=== PATIENT | female | born 1970 | race Caucasian/White ===

== ENCOUNTER → 2017-02-14 | Outpatient (CLI) | payer BC ==
[~2017-02-14] MED LIST: ALLEGRA ALLERG180 MG PO; CYMBALTA 60MG60 MG PO; ESTRACE 1MG1 MG/TAB PO; FLONASEALLERGY NS; FLOVENT 110MCG7.9 GM IH; HYOPHEN1 TAB PO; KLONOPIN2 MG PO; LAMICTAL 100MG100 MG PO; LIORESAL20 MG PO; NEURONTIN300 MG/CAP PO; NORCO 325 MG-51 TAB PO; NORCO 325 MG-7.1 TAB PO; PROAIR HFA0.09 MG/AC IH; PROTONIX 40MG T40 MG PO; ZANAFLEX2 MG PO; [UNRECOGNIZED DRUG - OTHER]
== END ==
LOC: BHSO 15:29
DX: F41.1 Generalized anxiety disorder (principal)

== ENCOUNTER → 2017-03-12 | Outpatient (CLI) | payer BC | LOC: MC.RAD 07:38 | DX: Z12.31 Encounter for screening mammogram for malignant neoplasm of breast (principal) ==

== ENCOUNTER → 2017-09-27 | Outpatient (CLI) | payer BC | LOC: BHSO 16:21 | DX: F41.1 Generalized anxiety disorder (principal) ==

== ENCOUNTER → 2018-03-11 | Outpatient (CLI) | payer BC | LOC: BHSO 08:59 | DX: F33.42 Major depressive disorder, recurrent, in full remission (principal) | CPT/HCPCS: G0463 ==

== ENCOUNTER → 2018-05-13 | Outpatient (CLI) | payer BC | LOC: BHSO 13:00 | DX: F33.42 Major depressive disorder, recurrent, in full remission (principal) | CPT/HCPCS: G0463 ==

== ENCOUNTER → 2018-08-12 | Outpatient (CLI) | payer BC | LOC: BHSO 16:27 | DX: F41.1 Generalized anxiety disorder (principal) | CPT/HCPCS: G0463 ==

== ENCOUNTER → 2018-08-25 | Outpatient (CLI) | payer BC | LOC: COL.RAD 08:05 | DX: M25.511 Pain in right shoulder (principal); G89.29 Other chronic pain; M79.2 Neuralgia and neuritis, unspecified; M89.8X1 Other specified disorders of bone, shoulder; M54.2 Cervicalgia ==

== ENCOUNTER → 2018-10-27 | Outpatient (CLI) | payer BC | LOC: MC.RAD 14:58 | DX: Z12.31 Encounter for screening mammogram for malignant neoplasm of breast (principal); Z98.890 Other specified postprocedural states ==